=== PATIENT | female | born 1995 | race Caucasian/White ===

== ENCOUNTER 2016-09-22 11:50 | Observation (INO) | payer OTHER ==
[~2016-09-22] VITALS: Ht 152.4 cm; Wt 84.8 kg
[2016-09-22 12:09] VITALS: BP 113/68
[2016-09-22] MEDS ORDERED: PREN1TAB80 PO (12:10)
[2016-09-22] MEDS ORDERED: RINGERS SOLUTION,LACTATED 1,000 ML IV ONE ×2 (12:34→12:45)
== END 2016-09-22 15:55 | disposition home or self-care (01) ==
LOC: 4S 11:50
PROVIDERS: ADMIT Obstetrics & Gynecology; ATTEND Obstetrics & Gynecology
DX: O41.03X0 Oligohydramnios, third trimester, not applicable or unspecified (principal); Z3A.36 36 weeks gestation of pregnancy
CPT/HCPCS: 59025; 76805; 96360; G0378; J7120

== ENCOUNTER 2016-09-24 14:40 | Inpatient (IN) | payer OTHER ==
[~2016-09-24] VITALS: Ht 152.4 cm; Wt 83.9 kg
[~2016-09-24 14:40] MED LIST: PREN1TAB80 PO
[2016-09-24] MEDS ORDERED: RINGERS SOLUTION,LACTATED 1,000 ML IV PRN (15:21)
[2016-09-24] MEDS ORDERED: OXYTOCIN 30 UNITS/LACT RINGERS 500 ML IV ONE (15:21)
[2016-09-24] MEDS ORDERED: METOCLOPRAMIDE HCL 5 MG/ML 2 ML VIAL IVP PRN (15:30)
[2016-09-24] MEDS ORDERED: CITRIC ACID/SODIUM CITRATE 30 ML SOLUTION UDCUP PO PRN (15:30)
[2016-09-24] MEDS ORDERED: FentaNYL CITRATE-PF 100 MCG/2 ML VIAL IVP PRN (15:30)
[2016-09-24] MEDS ORDERED: AMPICILLIN SODIUM 2 GM/NS 100 ML IV ONE (15:30)
[2016-09-24] MEDS ORDERED: BETAMETHASONE SOLUSPAN 6 MG/ML 5 ML VIAL IM ONE (15:30)
[2016-09-24 16:03] LABS: BASOPHILS % (AUTO) 0.6 % (0.0-2.0); EOSINOPHILS % (AUTO) 0.3 % (1.0-6.0); HEMOGLOBIN 12.5 g/dL (12.0-16.0); LYMPHOCYTES % (AUTO) 18.3 % (22.0-44.0); MEAN CORPUSCULAR HEMOGLOBIN 28.2 pg (26.0-34.0); MEAN CORPUSCULAR HGB CONC 33.8 G/dL (31.0-37.0); MEAN CORPUSCULAR VOLUME 83 fL (80-100); MONOCYTES # (AUTO) 0.8 K/uL (0.1-1.0); MONOCYTES % (AUTO) 7.2 % (2.0-9.0); NEUTROPHILS % (AUTO) 73.6 % (40.0-70.0); RED BLOOD CELL COUNT(AUTO) 4.43 MIL/uL (4.00-5.20); RED CELL DISTRIBUTION WIDTH 13.4 % (11.5-14.5); WHITE BLOOD COUNT (AUTO) 10.8 K/uL (4.5-11.0)
[2016-09-24 16:48] VITALS: BP 99/61
[2016-09-24] MEDS ORDERED: OXYGEN THERAPY IH SCH (20:00)
[2016-09-24] MEDS: AMPICILLIN SODIUM 1 GM/NS 50 ML IV SCH ×2 (20:08→23:57)
[2016-09-24] MEDS: RINGERS SOLUTION,LACTATED 1,000 ML IV SCH (23:58)
[2016-09-25] MEDS ORDERED: EPINEPHrine 1:1,000 [1 MG/ML] AMP IM ONE ×2 (00:08→22:39)
[2016-09-25] MEDS ORDERED: OXYTOCIN 10 UNITS/ML VIAL IM ONE (00:08)
[2016-09-25] MEDS: AMPICILLIN SODIUM 1 GM/NS 50 ML IV SCH ×5 (03:53→19:48)
[2016-09-25] MEDS ORDERED: BETAMETHASONE SOLUSPAN 6 MG/ML 5 ML VIAL IM ONE (04:00)
[2016-09-25] MEDS ORDERED: OXYTOCIN 30 UNITS/LACT RINGERS 500 ML IV PRN (08:57)
[2016-09-25] MEDS ORDERED: BUPIVACAINE HCL/PF 0.25% 10 ML VIAL ONE ×4 (09:10→18:14)
[2016-09-25] MEDS ORDERED: LIDOCAINE HCL/PF 2% 5 ML VIAL ONE ×4 (09:10→20:48)
[2016-09-25] MEDS ORDERED: FentaNYL/BUPIV 0.125%/NS/PF 200 ML ED ONE (09:10)
[2016-09-25] MEDS: RINGERS SOLUTION,LACTATED 1,000 ML IV SCH ×2 (10:59→14:57)
[2016-09-25] MEDS ORDERED: BUPIVACAINE HCL/PF 0.5% 10 ML VIAL ONE (14:57)
[2016-09-25] MEDS ORDERED: FentaNYL CITRATE-PF 100 MCG/2 ML VIAL ONE ×3 (14:57→20:47)
[2016-09-25] MEDS ORDERED: LIDOCAINE HCL 2%/EPI 1:200,000/PF 10 ML VIAL ONE (18:03)
[2016-09-25] MEDS ORDERED: MORPHINE SULFATE/PF 1 MG/ML 10 ML AMP ONE (20:47)
[2016-09-25] MEDS ORDERED: CeFAZolin 2 GM/DEXTROSE 50 ML IV ONE (20:49)
[2016-09-25] MEDS ORDERED: GUM MASTIC/STORAX/MSAL/ALCOHOL LIQUID 0.67 ML VIAL TP ONE (21:44)
[2016-09-25] MEDS ORDERED: NALBUPHINE HCL 10 MG/ML VIAL IVP PRN (22:00)
[2016-09-25] MEDS ORDERED: PROMETHAZINE HCL 12.5 MG in SODIUM CHLORIDE 0.9% 50 ML IV PRN (22:00)
[2016-09-25] MEDS ORDERED: MEPERIDINE-PF 25 MG/ML SYRINGE IVP PRN (22:00)
[2016-09-25] MEDS ORDERED: ONDANSETRON HCL 4 MG/2 ML VIAL IVP PRN ×2 (22:00→22:45)
[2016-09-25] MEDS ORDERED: DiphenhydrAMINE HCL 50 MG/ML VIAL IVP PRN ×2 (22:00→22:45)
[2016-09-25] MEDS ORDERED: DEXAMETHASONE SOD PHOS 4 MG/ML VIAL IVP PRN (22:00)
[2016-09-25] MEDS ORDERED: FentaNYL CITRATE-PF 100 MCG/2 ML VIAL IVP PRN ×6 (22:15→22:45)
[2016-09-25] MEDS ORDERED: GLYCERIN/WITCH HAZEL LEAF 40 PADS JAR TP PRN (22:30)
[2016-09-25] MEDS ORDERED: OxyCODONE HCL/ACETAMINOPHEN 5-325 MG TABLET PO PRN ×2 (22:30)
[2016-09-25] MEDS ORDERED: LANOLIN 7 GM OINTMENT TP PRN (22:30)
[2016-09-25] MEDS ORDERED: PHENYLEPHRINE HCL 10 MG/ML VIAL IVP ONE (22:39)
[2016-09-25] MEDS ORDERED: NALOXONE HCL 0.4 MG/ML VIAL IVP PRN (22:45)
[2016-09-26] MEDS ORDERED: KETOROLAC TROMETHAMINE 30 MG/ML VIAL IVP ONE
[2016-09-26] MEDS: RINGERS SOLUTION,LACTATED 1,000 ML IV SCH ×3 (01:12→15:43)
[2016-09-26] MEDS ORDERED: NALBUPHINE HCL 10 MG/ML VIAL IVP SCH ×2 (02:00→06:15)
[2016-09-26 06:15] LABS: EOSINOPHILS % (AUTO) 0 % (1.0-6.0); HEMATOCRIT 28.9 % (36-46); HEMOGLOBIN 9.6 g/dL (12.0-16.0); LYMPHOCYTES # (AUTO) 1.2 K/uL (1.0-4.8); LYMPHOCYTES % (AUTO) 6.3 % (22.0-44.0); MEAN CORPUSCULAR HEMOGLOBIN 28.5 pg (26.0-34.0); MEAN CORPUSCULAR HGB CONC 33.1 G/dL (31.0-37.0); MEAN CORPUSCULAR VOLUME 86 fL (80-100); MONOCYTES # (AUTO) 1.2 K/uL (0.1-1.0); MONOCYTES % (AUTO) 6.4 % (2.0-9.0); RED BLOOD CELL COUNT(AUTO) 3.35 MIL/uL (4.00-5.20); RED CELL DISTRIBUTION WIDTH 14.2 % (11.5-14.5); WHITE BLOOD COUNT (AUTO) 18.4 K/uL (4.5-11.0)
[2016-09-26] MEDS: KETOROLAC TROMETHAMINE 30 MG/ML VIAL IVP SCH ×2 (06:20→12:48)
[2016-09-26 06:53] LABS: NEUTROPHILS % (AUTO) 87.3 % (40.0-70.0)
[2016-09-26] MEDS: NALBUPHINE HCL 10 MG/ML VIAL IVP SCH ×3 (07:57→20:01)
[2016-09-26] MEDS: MAGNESIUM HYDROXIDE SUSPENSION 30 ML UDCUP PO SCH ×2 (09:15→20:01)
[2016-09-26] MEDS: SENNA/DOCUSATE SODIUM 187-50 MG TABLET PO SCH ×2 (09:16→20:01)
[2016-09-27] MEDS: IBUPROFEN 600 MG TABLET PO PRN ×3 (01:08→18:50)
[2016-09-27] MEDS: NALBUPHINE HCL 10 MG/ML VIAL IVP SCH (02:00)
[2016-09-27 06:40] LABS: BASOPHILS # (AUTO) 0.01 K/uL (0.00-0.20); BASOPHILS % (AUTO) 0.1 % (0.0-2.0); EOSINOPHILS # (AUTO) 0.01 K/uL (0.00-0.70); EOSINOPHILS % (AUTO) 0.04 % (1.0-6.0); HEMATOCRIT 29.5 % (36-46); HEMOGLOBIN 9.9 g/dL (12.0-16.0); LYMPHOCYTES # (AUTO) 1.6 K/uL (1.0-4.8); LYMPHOCYTES % (AUTO) 11.1 % (22.0-44.0); MEAN CORPUSCULAR HEMOGLOBIN 28.7 pg (26.0-34.0); MEAN CORPUSCULAR HGB CONC 33.6 G/dL (31.0-37.0); MEAN CORPUSCULAR VOLUME 85 fL (80-100); MONOCYTES # (AUTO) 1.1 K/uL (0.1-1.0); MONOCYTES % (AUTO) 7.9 % (2.0-9.0); NEUTROPHILS # (AUTO) 11.8 K/uL (1.8-7.7); NEUTROPHILS % (AUTO) 80.9 % (40.0-70.0); RED BLOOD CELL COUNT(AUTO) 3.46 MIL/uL (4.00-5.20); RED CELL DISTRIBUTION WIDTH 14.3 % (11.5-14.5); WHITE BLOOD COUNT (AUTO) 14.6 K/uL (4.5-11.0)
[2016-09-27] MEDS: SENNA/DOCUSATE SODIUM 187-50 MG TABLET PO SCH ×2 (09:00→21:00)
[2016-09-27] MEDS: MAGNESIUM HYDROXIDE SUSPENSION 30 ML UDCUP PO SCH ×2 (09:00→21:00)
[2016-09-28] MEDS: IBUPROFEN 600 MG TABLET PO PRN ×2 (00:23→06:06)
[2016-09-28] MEDS ORDERED: MO6B PO (13:30)
[2016-09-28] MEDS ORDERED: PERCT PO (13:30)
[2016-09-28] MEDS ORDERED: DSS100 PO (13:30)
[2016-09-28] MEDS ORDERED: FERR-89 PO (13:30)
== END 2016-09-28 14:35 | disposition home or self-care (01) | DRG 766 ==
LOC: OBSVTOIN 14:40 → 4S 14:40
PROVIDERS: ADMIT Obstetrics & Gynecology; ATTEND Obstetrics & Gynecology
PROC: 10D00Z1 Extraction of Products of Conception, Low, Open Approach (ICD-10-PCS; principal; 2016-09-24)
DX: O62.0 Primary inadequate contractions (principal); Z37.0 Single live birth; Z3A.37 37 weeks gestation of pregnancy
CPT/HCPCS: J0171; J0290; J0690; J0702; J1885; J2300; J2370; J2590; J2765; J3010; J3490; J7120